=== PATIENT | female | born 1940 | race Caucasian/White ===

== ENCOUNTER 2019-02-27 23:28 | Emergency (ER) | payer MEDICARE, BC ==
[~2019-02-27] VITALS: Ht 154.9 cm; Wt 59.4 kg
[~2019-02-27 23:28] MED LIST: AMIT10TA6 PO; AMLO1CAP62 PO; CHOL2000 PO; MAGN400C PO; NABU750T2 PO; NAPR220C15 PO; OMEG1CAP13 PO; POTA8TAB8 PO
[2019-02-27 23:58] LABS: BASOPHILS # (AUTO) 0.1 X10'3 (0-0.2); BASOPHILS % (AUTO) 0.6 % (0-1); EOSINOPHILS # (AUTO) 0.1 X10'3 (0-0.9); EOSINOPHILS % (AUTO) 0.3 % (0-6); HEMATOCRIT 41.9 % (35.0-45.0); HEMOGLOBIN 13.9 g/dl (12.0-16.0); LYMPHOCYTES % (AUTO) 10.6 % (21-51); MEAN CORPUSCULAR HEMOGLOBIN 28.3 PG (27.0-31.0); MEAN CORPUSCULAR HGB CONC 33.2 g/dL (33.0-36.5); MEAN CORPUSCULAR VOLUME 85.2 FL (78-98); MEAN PLATELET VOLUME 7.4 FL (7.4-10.4); MONOCYTES # (AUTO) 0.8 X10'3 (0-0.9); MONOCYTES % (AUTO) 4.4 % (2-12); NEUTROPHILS % (AUTO) 84.1 % (42-75); PLATELET COUNT 411 X10'3 (140-440); RED BLOOD COUNT 4.92 X10'6 (4.20-5.60); RED CELL DISTRIBUTION WIDTH 13.4 % (11.5-14.5)
[2019-02-28 00:09] LABS: ALANINE AMINOTRANSFERASE 24 U/L (12-78); ALBUMIN 3.9 G/DL (3.4-5.0); ALBUMIN/GLOBULIN RATIO 1.1 (1.1-1.5); ALKALINE PHOSPHATASE 67 IU/L (46-116); ANION GAP 11 (8-16); ASPARTATE AMINO TRANSFERASE 16 U/L (10-37); BILIRUBIN,TOTAL 0.6 MG/DL (0.1-1.0); BLOOD UREA NITROGEN 12 MG/DL (7-18); CALCIUM 8.8 MG/DL (8.5-10.1); CHLORIDE 105 MMOL/L (99-107); GLUCOSE 116 MG/DL (70-104); SODIUM 141 MMOL/L (135-145); TOTAL CARBON DIOXIDE 25.4 MMOL/L (24-32); TOTAL PROTEIN 7.6 G/DL (6.4-8.2); eGFR 70 ML/MIN
[2019-02-28 00:26] LABS: INR 1.1 INR
[2019-02-28] MEDS ORDERED: ondansetron 4mg rapidly disintigrating tab PO ONE (00:35)
[2019-02-28] MEDS ORDERED: HYDROcodone/acetaminophen 5mg/325mg tablet PO ONE (00:35)
[2019-02-28 00:54] LABS: LIPASE 154 U/L (73-393); TROPONIN I < 0.04 NG/ML (0.0-0.05)
[2019-02-28] MEDS ORDERED: potassium Cl 20 mEq SR tablet PO STA (01:33)
[2019-02-28] MEDS ORDERED: piperacillin/tazo 4.5gm/100ml 100 ML IV ONE (01:35)
[2019-02-28] MEDS ORDERED: potassium 10mEq/100ml NS w/LIDOcaine (10mg/bag) IV ONE (01:35)
[2019-02-28] MEDS ORDERED: normal saline 1000ml 1,000 ML IV ONE (01:35)
[2019-02-28 02:10] LABS: CLARITY,URINE CLEAR (Clear); COLOR,URINE YELLOW (Yellow); GLUCOSE, URINE NEGATIVE (Neg); KETONES,URINE 40 mg/dl (Neg); LEUKOCYTE ESTERASE ,URINE NEGATIVE (Neg); NITRITES, URINE NEGATIVE (Neg); OCCULT BLOOD,URINE NEGATIVE (Neg); PROTEIN,URINE NEGATIVE (Neg); UROBILINOGEN,URINE 0.2 E.U/dL (0.2-1.0)
[2019-02-28 02:14] LABS: UA COLLECTION TYPE NON-SPECIFIED
[2019-02-28] MEDS ORDERED: ONDA4TAB6 PO (02:27)
[2019-02-28] MEDS ORDERED: HYDR-3965 PO (02:27)
[2019-02-28] MEDS ORDERED: AMOX-580 PO (02:27)
[2019-02-28] MEDS ORDERED: POTA20TA19 PO (02:30)
[2019-02-28 03:08] VITALS: BP 130/65
== END 2019-02-28 03:09 | disposition home or self-care (01) ==
LOC: ER 23:28
DX: K52.89 Other specified noninfective gastroenteritis and colitis (principal); E87.6 Hypokalemia; R10.32 Left lower quadrant pain; I10 Essential (primary) hypertension; Z79.899 Other long term (current) drug therapy
CPT/HCPCS: 36415; 74176; 80053; 81003; 83605; 83690; 84484; 85025; 85610; 87040; 96365; 96375; 99284; J2543; J3480; J7030

== ENCOUNTER 2024-02-07 08:31 | Emergency (ER) | payer MEDICARE, BC ==
[~2024-02-07] VITALS: Ht 154.9 cm; Wt 67.0 kg
[~2024-02-07 08:31] MED LIST changes: +NABU-141 PO; -NABU750T2 PO; +OMEG-5 PO; -OMEG1CAP13 PO; +ONDA4TAB6 PO
[2024-02-07 08:44] VITALS: PULSE 69; RESP 20; TEMP 97.8; O2SAT 97
[2024-02-07 09:36] LABS: BILIRUBIN,URINE NEGATIVE (Neg); CLARITY,URINE CLEAR (Clear); COLOR,URINE YELLOW (Yellow); GLUCOSE, URINE NEGATIVE (Neg); KETONES,URINE NEGATIVE (Neg); LEUKOCYTE ESTERASE ,URINE NEGATIVE (Neg); NITRITES, URINE NEGATIVE (Neg); OCCULT BLOOD,URINE NEGATIVE (Neg); PROTEIN,URINE NEGATIVE (Neg); UROBILINOGEN,URINE 0.2 E.U/dL (0.2-1.0)
[2024-02-07 09:38] LABS: UA COLLECTION TYPE VOIDED
== END 2024-02-07 10:32 | disposition home or self-care (01) ==
LOC: ER 08:32
DX: R30.0 Dysuria (principal); N95.2 Postmenopausal atrophic vaginitis; I10 Essential (primary) hypertension
CPT/HCPCS: 81003; 99283